=== PATIENT | male | born 1960 | race Caucasian/White ===

== ENCOUNTER 2020-05-30 14:02 | Emergency (ER) | payer OTHER ==
[~2020-05-30 14:02] MED LIST: ASPIRIN EC81 MG PO; ATORVASTATIN CA20 MG PO; BREO ELLIPTA 11 EACH INH; CARVEDILOL25 MG PO; CEFPODOXIME PR200 MG PO; DOXYCYCLINE HY100 MG PO; LISINOPRIL5 MG PO; VENTOLIN HFA 66.7 GM INH
[2020-05-30] MEDS ORDERED: CYCLOBENZAPRINE10 MG PO (15:45)
[2020-05-30] MEDS ORDERED: NAPROSYN500 MG PO (15:45)
== END 2020-05-30 16:00 | disposition home or self-care (01) ==
LOC: ER1 14:02
DX: S20.212A Contusion of left front wall of thorax, initial encounter (principal); I50.9 Heart failure, unspecified; F17.200 Nicotine dependence, unspecified, uncomplicated; W19.XXXA Unspecified fall, initial encounter; Y92.009 Unspecified place in unspecified non-institutional (private) residence as the place of occurrence of the external cause
CPT/HCPCS: 71111; 96372; 99283; J1885

== ENCOUNTER 2020-07-04 15:35 | Emergency (ER) | payer OTHER ==
[~2020-07-04 15:35] MED LIST changes: +CYCLOBENZAPRINE10 MG PO; +NAPROSYN500 MG PO
[2020-07-04 16:40] LABS: HEMOGLOBIN 13.6 gm/dl (14.0-17.5); WHITE BLOOD COUNT 8.7 K/UL (4.5-11.0)
[2020-07-04 16:48] LABS: BUN/CREATININE RATIO 23 (0-10)
[2020-07-04] MEDS ORDERED: LASIX40 MG PO (21:58)
[2020-07-04] MEDS ORDERED: BLOOD TEST (21:58)
[2020-07-04] MEDS ORDERED: K-DUR TAB 20 M20 MEQ PO (21:58)
== END 2020-07-04 22:16 | disposition home or self-care (01) ==
LOC: ER1 15:35
PROVIDERS: Family Medicine
DX: I50.9 Heart failure, unspecified (principal); F17.200 Nicotine dependence, unspecified, uncomplicated; Z20.822 Contact with and (suspected) exposure to COVID-19
CPT/HCPCS: 71045; 80053; 82550; 82553; 83874; 83880; 84484; 85025; 85379; 85610; 93005; 96374; 99285; J1940; Q9967; U0002

== ENCOUNTER → 2020-11-25 | Outpatient (CLI) | payer OTHER ==
[~2020-11-25] MED LIST changes: +BLOOD TEST; +K-DUR TAB 20 M20 MEQ PO; +LASIX40 MG PO
== END ==
LOC: RAD 09:30
DX: I50.9 Heart failure, unspecified (principal); R94.31 Abnormal electrocardiogram [ECG] [EKG]
CPT/HCPCS: 71046; 93005

== ENCOUNTER 2021-02-19 20:52 | Inpatient (IN) | payer OTHER ==
[~2021-02-19] VITALS: Ht 180.3 cm; Wt 102.1 kg
[2021-02-19 22:16] LABS: HEMOGLOBIN 13.9 gm/dl (14.0-17.5); RED BLOOD COUNT 4.76 M/UL (4.20-5.50); WHITE BLOOD COUNT 9.5 K/UL (4.5-11.0)
[2021-02-19 22:38] LABS: BUN/CREATININE RATIO 22 (0-10)
[2021-02-20] MEDS ORDERED: FUROSEMIDE40 MG PO ×2 (09:54→15:41)
--- NOTE | 2021-02-20 15:59 | NUR ---
AFTER IMMEDIATELY COMING FROM PCU STATES I WANT TO GO HOME SO GET MY PAPERS RIGHT NOW. WHEN ASKED WHY THE PATIENT REPLIED"CAUSE I'M COLD". TRIED TO TALK TO PT AFTERWARDS BUT PT KEPT GETTING ANGRIER AND STATED I WANT TO LEAVE AND CALLED HIS RIDE.
== END 2021-02-20 16:02 | disposition left against medical advice (07) | DRG 292 ==
LOC: ER1 20:52 → PROG CARE 02-20 00:56 → CDU 02-20 00:56 → PROG CARE 02-20 02:18 → M/S 02-20 14:23
PROVIDERS: Emergency Medicine; ADMIT Internal Medicine
DX: I50.23 Acute on chronic systolic (congestive) heart failure (principal); I42.0 Dilated cardiomyopathy; Z20.822 Contact with and (suspected) exposure to COVID-19; J44.9 Chronic obstructive pulmonary disease, unspecified; F19.10 Other psychoactive substance abuse, uncomplicated; F17.210 Nicotine dependence, cigarettes, uncomplicated; F15.10 Other stimulant abuse, uncomplicated; I10 Essential (primary) hypertension; I25.10 Atherosclerotic heart disease of native coronary artery without angina pectoris; Z98.61 Coronary angioplasty status; Z91.14 Patient's other noncompliance with medication regimen; Z81.1 Family history of alcohol abuse and dependence; Z83.3 Family history of diabetes mellitus
CPT/HCPCS: 36415; 36600; 71045; 80053; 80061; 80307; 82550; 82553; 82803; 83036; 83735; 83874; 83880; 84100; 84439; 84443; 84484; 84550; 85025; 85610; 85730; 93005; 96374; 99285; J1650; J1940; U0002

== ENCOUNTER 2021-02-26 12:40 | Inpatient (IN) | payer OTHER ==
[~2021-02-26] VITALS: Ht 180.3 cm; Wt 103.5 kg
[~2021-02-26 12:40] MED LIST changes: +FUROSEMIDE40 MG PO
[2021-02-26 13:18] LABS: HEMOGLOBIN 14.6 gm/dl (14.0-17.5); RED BLOOD COUNT 4.82 M/UL (4.20-5.50); WHITE BLOOD COUNT 8.7 K/UL (4.5-11.0)
[2021-02-26 13:41] LABS: BUN/CREATININE RATIO 20 (0-10)
[2021-02-26] MEDS ORDERED: LASIX 40 MG TAB40 MG PO (17:19)
[2021-02-27 04:35] LABS: HEMOGLOBIN 13.9 gm/dl (14.0-17.5); RED BLOOD COUNT 4.64 M/UL (4.20-5.50)
[2021-02-27 04:41] LABS: WHITE BLOOD COUNT 11.7 K/UL (4.5-11.0)
[2021-02-27 05:13] LABS: BUN/CREATININE RATIO 16 (0-10)
--- NOTE | 2021-02-28 04:48 | NUR ---
contacted dr gabriel regarding patients 129 HR and anxious condition. dr Gabriel stated no new orders at this time, continue to monitor patient.
[2021-02-28 08:51] LABS: RED BLOOD COUNT 5.04 M/UL (4.20-5.50); WHITE BLOOD COUNT 11.6 K/UL (4.5-11.0)
[2021-02-28 09:33] LABS: BUN/CREATININE RATIO 20 (0-10)
--- NOTE | 2021-02-28 16:56 | NUR ---
Contacted Dr. Murguia... patient requested to take a shower, however per Dr. Murguia she would prefer patient to wash off at bedside. Explained to patient and patient verbalized understanding. Eliseo, legal receptionist at bedside and setting patient up for a bath a bedside and changing linens.
--- NOTE | 2021-02-28 18:36 | NUR ---
Called Dr. Murguia made her aware - per patient monitor 6 beat run of v tach. No new orders rec. Dr. Murguia stated she would come [place] to see patient. Patient resting in room in no acute distress. Denies needs other than request for blanket. Covered patient up as requested.
[2021-03-01 06:03] LABS: HEMOGLOBIN 13.7 gm/dl (14.0-17.5); RED BLOOD COUNT 4.54 M/UL (4.20-5.50); WHITE BLOOD COUNT 10.7 K/UL (4.5-11.0)
[2021-03-01 06:35] LABS: BUN/CREATININE RATIO 22 (0-10)
--- NOTE | 2021-03-01 11:06 | NUR ---
1100: PATIENT STATES THAT HE IS GOING HOME, STATES HE CAN GIVE HIMESLF BREATHING TX AT HOME. RN EXPLAINED TO PATIENT HIS TREATMENT PLAN OF LASIX FOR HIS CURRENT CHF/PULMONARY EDEMA, PER CXR THIS MORNING AND THE 40 MG OF LAZIX THE PATIENT IS RECEIVING TWICE A DAY TO PULL THE FLUID OFF OF HIS HEART AND LUNGS. RN ALSO SHOWED PATIENT THE NOTED PEDAL EDEMA THE PATIENT HAS. PATIENT STILL WANTS TO SEE THE DR AND BE DISCHARGED. RN LEFT DR WEEMS VOICE MAIL TO RETURN CALL.
--- NOTE | 2021-03-01 13:03 | NUR ---
1300: REPIRATORY THERAPIST FOUND PATIENT O2 ON 6 LPM. DISCUSSED WITH RN PATIENT SUPPOSED TO BE ON 2 LPM. SPO2 NOTED AT 100%. OXYGEN TURNED BACK DOWN TO 2 LPM WILL CONTINUE TO MONITOR. PATIENTS MOTHER IN ROOM, EXPLAINED THAT OXYGEN IS A DRUG AND IT CAN BE DANGEROUS FOR PATIENT TO RECEIVED MORE THAN IS ORDERED. VERBAL UNDERSTANDING NOTED.
[2021-03-02 08:04] LABS: HEMOGLOBIN 13.4 gm/dl (14.0-17.5); RED BLOOD COUNT 4.73 M/UL (4.20-5.50); WHITE BLOOD COUNT 8.8 K/UL (4.5-11.0)
[2021-03-02 08:29] LABS: BUN/CREATININE RATIO 24 (0-10)
[2021-03-03 06:48] LABS: HEMOGLOBIN 13.9 gm/dl (14.0-17.5); RED BLOOD COUNT 4.58 M/UL (4.20-5.50); WHITE BLOOD COUNT 8.8 K/UL (4.5-11.0)
[2021-03-03 07:33] LABS: BUN/CREATININE RATIO 23 (0-10)
[2021-03-03] MEDS ORDERED: LOPRESSOR 25 MG25 MG PO (10:14)
[2021-03-03] MEDS ORDERED: LISINOPRIL5 MG PO (10:14)
[2021-03-03] MEDS ORDERED: ASPIRIN EC81 MG PO (10:14)
[2021-03-03] MEDS ORDERED: FUROSEMIDE40 MG PO (10:14)
[2021-03-04 08:09] LABS: HEMOGLOBIN 14.2 gm/dl (14.0-17.5); RED BLOOD COUNT 4.74 M/UL (4.20-5.50); WHITE BLOOD COUNT 9.6 K/UL (4.5-11.0)
[2021-03-04 08:10] LABS: BUN/CREATININE RATIO 20 (0-10)
--- NOTE | 2021-03-04 12:50 | NUR ---
CALLED REPORT TO ADONAY AT [facility].
== END 2021-03-04 13:50 | disposition home health service (06) | DRG 291 ==
LOC: ER1 12:40 → CDU 15:50 → MED SURG 4 15:50
PROVIDERS: Internal Medicine; Physician Assistant; ADMIT Internal Medicine
DX: I50.23 Acute on chronic systolic (congestive) heart failure (principal); J96.01 Acute respiratory failure with hypoxia; I42.8 Other cardiomyopathies; Z20.822 Contact with and (suspected) exposure to COVID-19; I47.1 Supraventricular tachycardia; F15.10 Other stimulant abuse, uncomplicated; I08.1 Rheumatic disorders of both mitral and tricuspid valves; E87.6 Hypokalemia; F41.9 Anxiety disorder, unspecified; I27.20 Pulmonary hypertension, unspecified; F17.210 Nicotine dependence, cigarettes, uncomplicated; Z90.49 Acquired absence of other specified parts of digestive tract; Z83.3 Family history of diabetes mellitus; Z82.49 Family history of ischemic heart disease and other diseases of the circulatory system; Z79.82 Long term (current) use of aspirin; Z90.81 Acquired absence of spleen
CPT/HCPCS: ECHO; 36415; 36600; 71045; 71046; 80048; 80053; 80061; 81001; 82550; 82553; 82803; 83605; 83735; 83874; 83880; 84100; 84484; 85025; 85027; 93306; 93970; 94640; 94664; 94760; 96374; 99285; J1650; J1940; J2060; Q0177; U0002

== ENCOUNTER 2021-03-12 20:51 | Inpatient (IN) | payer OTHER ==
[~2021-03-12] VITALS: Ht 180.3 cm; Wt 100.2 kg
[~2021-03-12 20:51] MED LIST changes: +LASIX 40 MG TAB40 MG PO; +LOPRESSOR 25 MG25 MG PO
[2021-03-12 21:46] LABS: HEMOGLOBIN 14.5 gm/dl (14.0-17.5); RED BLOOD COUNT 4.9 M/UL (4.20-5.50); WHITE BLOOD COUNT 10.2 K/UL (4.5-11.0)
[2021-03-12 21:58] LABS: BUN/CREATININE RATIO 25 (0-10)
[2021-03-13] MEDS ORDERED: PROVENTIL HFA6.7 GM INH (00:16)
[2021-03-13 02:47] LABS: BUN/CREATININE RATIO 24 (0-10)
[2021-03-14 05:35] LABS: HEMOGLOBIN 13.5 gm/dl (14.0-17.5); RED BLOOD COUNT 4.59 M/UL (4.20-5.50); WHITE BLOOD COUNT 12.1 K/UL (4.5-11.0)
[2021-03-14 06:24] LABS: BUN/CREATININE RATIO 22 (0-10)
[2021-03-15 06:03] LABS: HEMOGLOBIN 14.2 gm/dl (14.0-17.5); RED BLOOD COUNT 4.87 M/UL (4.20-5.50); WHITE BLOOD COUNT 11.1 K/UL (4.5-11.0)
[2021-03-15 06:17] LABS: BUN/CREATININE RATIO 20 (0-10)
[2021-03-16 06:53] LABS: HEMOGLOBIN 15.1 gm/dl (14.0-17.5); RED BLOOD COUNT 5.16 M/UL (4.20-5.50); WHITE BLOOD COUNT 10.1 K/UL (4.5-11.0)
[2021-03-16 07:29] LABS: BUN/CREATININE RATIO 21 (0-10)
[2021-03-17 03:08] LABS: RED BLOOD COUNT 5.35 M/UL (4.20-5.50); WHITE BLOOD COUNT 10.6 K/UL (4.5-11.0)
[2021-03-17 03:40] LABS: BUN/CREATININE RATIO 26 (0-10)
[2021-03-17] MEDS ORDERED: FUROSEMIDE40 MG PO (09:34)
[2021-03-17] MEDS ORDERED: LOPRESSOR 25 MG25 MG PO (09:34)
[2021-03-17] MEDS ORDERED: ASPIRIN EC81 MG PO (09:34)
[2021-03-17] MEDS ORDERED: LISINOPRIL5 MG PO (09:34)
--- NOTE | 2021-03-17 11:26 | NUR ---
report given to admitting nurse of [facility]
== END 2021-03-17 10:52 | disposition home health service (06) | DRG 292 ==
LOC: ER1 20:51 → M/S 22:37 → CDU 22:37 → M/S 23:58
PROVIDERS: Internal Medicine; Physician Assistant; Preventive Medicine Occupational Medicine; ADMIT Internal Medicine
DX: I50.23 Acute on chronic systolic (congestive) heart failure (principal); J96.11 Chronic respiratory failure with hypoxia; I42.8 Other cardiomyopathies; I47.1 Supraventricular tachycardia; Z20.822 Contact with and (suspected) exposure to COVID-19; I25.10 Atherosclerotic heart disease of native coronary artery without angina pectoris; F15.10 Other stimulant abuse, uncomplicated; R53.81 Other malaise; J44.9 Chronic obstructive pulmonary disease, unspecified; F17.210 Nicotine dependence, cigarettes, uncomplicated; Z91.19 Patient's noncompliance with other medical treatment and regimen; Z90.89 Acquired absence of other organs; Z98.890 Other specified postprocedural states; Z79.899 Other long term (current) drug therapy; Z79.82 Long term (current) use of aspirin
CPT/HCPCS: 36415; 36600; 71045; 71046; 80048; 80053; 80307; 81001; 82550; 82553; 82803; 83605; 83690; 83735; 83874; 83880; 84484; 85025; 85027; 85652; 86140; 87040; 87086; 93005; 94640; 94664; 94760; 96374; 97161; 97165; 99285; G0480; J1120; J1650; J1940; U0002

== ENCOUNTER 2021-03-24 01:19 | Emergency (ER) | payer OTHER ==
[~2021-03-24 01:19] MED LIST changes: +PROVENTIL HFA6.7 GM INH
[2021-03-24 02:07] LABS: HEMOGLOBIN 15.3 gm/dl (14.0-17.5); RED BLOOD COUNT 5.19 M/UL (4.20-5.50); WHITE BLOOD COUNT 9.6 K/UL (4.5-11.0)
[2021-03-24 02:16] LABS: BUN/CREATININE RATIO 25 (0-10)
== END 2021-03-24 05:20 | disposition home or self-care (01) ==
LOC: ER1 01:19
PROVIDERS: Family Medicine
DX: I50.9 Heart failure, unspecified (principal); J90 Pleural effusion, not elsewhere classified; F17.290 Nicotine dependence, other tobacco product, uncomplicated
CPT/HCPCS: 71045; 80053; 82550; 82553; 83874; 83880; 84484; 85025; 85379; 93005; 96374; 99285; J1940; Q9967

== ENCOUNTER → 2021-11-18 | Outpatient (CLI) | payer OTHER | LOC: MAMO 14:17 → US 15:00 | DX: N63.10 Unspecified lump in the right breast, unspecified quadrant (principal); I10 Essential (primary) hypertension; I50.9 Heart failure, unspecified | CPT/HCPCS: 76641-RT; 77066 ==